=== PATIENT | female | born 2000 | race Caucasian/White ===

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

== ENCOUNTER 2024-09-26 22:25 | Inpatient (IN) | payer MEDICAID, OTHER ==
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
[2024-09-27] MEDS ORDERED: MAG HYDROX/AL HYDROX/SIMETH 355 ML BOTTLE PO PRN (02:28)
[2024-09-27] MEDS ORDERED: IBUPROFEN 600 MG TAB PO PRN (02:28)
[2024-09-27] MEDS ORDERED: haloperidoL 5 MG TAB PO PRN (02:28)
[2024-09-27] MEDS ORDERED: LORazepam 2 MG/ML INJ IM PRN (02:28)
[2024-09-27] MEDS ORDERED: ACETAMINOPHEN TAB 325 MG TAB PO PRN (02:28)
[2024-09-27] MEDS ORDERED: HALOPERIDOL LACTATE 5 MG/ML 1 ML VIAL IM PRN (02:28)
[2024-09-27] MEDS ORDERED: MAGNESIUM HYDROXIDE 2,400 MG/30 ML CUP PO PRN (02:28)
[2024-09-27] MEDS: NICOTINE 14MG/24HR PATCH TRANSDERM SCH (03:13)
[2024-09-27] MEDS: ALPRAZolam 0.5 MG TAB PO STA (03:14)
[2024-09-27] MEDS: LORazepam 1 MG TAB PO PRN (04:41)
[2024-09-27 05:14] LABS: Appearance,Urine Cloudy (Clear); Bacteria,Urine Few /hpf; Bilirubin,Urine Negative (Negative); Blood,Urine Small (Negative); Color,Urine Light Yellow; Glucose,Urine (UA) Negative (Negative); Ketones,Urine 3+ (Negative); Leukocyte Esterase,Urine Small (Negative); Mucus,Urine Few /hpf; Nitrite,Urine Negative (Negative); PH, Urine 6.5 (5.0-8.0); Protein,Urine Negative (Negative); RBC,Urine 3 /hpf (0-5); Specific Gravity,Urine 1.015 (1.001-1.035); Squamous Epithelial Cell,Urine 8 /hpf (0-4); WBC,Urine 5 /hpf (0-5)
[2024-09-27 05:44] LABS: Amphetamine Screen,Urine Detected (NotDetected); Barbiturate Screen,Urine Not Detected (NotDetected); Benzodiazepines Screen,Urine Detected (NotDetected); Cocaine Screen,Urine Not Detected (NotDetected); Methadone Screen, Urine Not Detected (NotDetected); Opiate Screen,Urine Not Detected (NotDetected); Oxycodone Screen, Urine Not Detected (NotDetected); Phencyclidine Screen,Urine Not Detected (NotDetected); Tricyclic Antidepressant,Urine Not Detected (NotDetected); Urn Cannabinoid Scrn Detected (NotDetected)
[2024-09-27 12:27] LABS: Basophils # (A) 0.03 10*3/uL (0.00-0.10); Basophils % (A) 0.5 %; Eosinophils # (A) 0.03 10*3/uL (0.04-0.35); Eosinophils % (A) 0.5 %; HCT 38.4 % (37.2-46.3); HGB 13.5 g/dL (12.0-15.0); Lymphocytes # (A) 0.95 10*3/uL (0.90-5.00); Lymphocytes % (A) 16.6 %; MCH 31.5 pg (27.0-32.0); MCHC 35.2 g/dL (32.0-37.0); MCV 89.5 fL (80.0-97.0); Mean Platelet Volume 9.9 fL (9.5-12.2); Monocytes # (A) 0.52 10*3/uL (0.20-1.00); Monocytes % (A) 9.1 %; Neutrophils # (A) 4.17 10*3/uL (1.80-7.70); Neutrophils % (A) 73.1 %; Platelet Count 276 10*3/uL (140-440); RBC 4.29 10*6/uL (4.10-5.20); RDW 13.3 % (11.5-14.5); WBC 5.71 10*3/uL (4.50-10.00)
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
[2024-09-27 12:40] LABS: ALT 14 U/L (4-34); AST 33 U/L (14-36); African American GFR (CKD) >90 (>60 ml/min/1.73 sqM); Albumin 4.7 g/dL (3.5-5.0); Alkaline Phosphatase 47 U/L (38-126); Anion Gap 11 mmol/L; Bilirubin, Delta 0.1 mg/dL (0.0-0.2); Blood Urea Nitrogen 12 mg/dL (7-17); Calcium 10.1 mg/dL (8.4-10.2); Carbon Dioxide 28 mmol/L (22-30); Chloride 97 mmol/L (98-107); Glucose 102 mg/dL (74-99); Non-African American GFR(CKD) >90 (>60 ml/min/1.73 sqM); Potassium 3.4 mmol/L (3.5-5.1); Sodium 136 mmol/L (137-145); Total Bilirubin 1.1 mg/dL (0.2-1.3); Total Protein 7.8 g/dL (6.3-8.2)
--- NOTE | 2024-09-27 13:04 | P.CONS ---
History of Present Illness - History of Present Illness 24-year-old with bipolar disorder came in for psychiatric evaluation apparently patient had some suicidal statements because of which patient was admitted to psychiatric floor psychiatrist evaluated the patient patient is feeling better today does use nicotine vapes. Patient is not having fever chills nausea vomiting abdominal pain dysuria. Patient potassium is low which was replaced patient does not have any diarrhea at this time. REVIEW OF SYSTEMS: All other systems are negative except those mentioned in the HPI PHYSICAL EXAMINATION: GENERAL: The patient is alert and oriented x3, not in any acute distress. Well developed, well nourished. HEENT: Pupils are round and equally reacting to light. EOMI. No scleral icterus. No conjunctival pallor. Normocephalic, atraumatic. No pharyngeal erythema. No thyromegaly. CARDIOVASCULAR: S1 and S2 present. No murmurs, rubs, or gallops. PULMONARY: Chest is clear to auscultation, no wheezing or crackles. ABDOMEN: Soft, nontender, nondistended, normoactive bowel sounds. No palpable organomegaly. MUSCULOSKELETAL: No joint swelling or deformity. EXTREMITIES: No cyanosis, clubbing, or pedal edema. NEUROLOGICAL: Gross neurological examination did not reveal any focal deficits. SKIN: No rashes. Assessment and plan -Bipolar disorder management as per primary service - Nicotine dependence patient is requiring higher dose of nicotine patch 21 mcg of nicotine patch was ordered history of ADHD for which patient is on amphetamines and urine drug screen is positive for amphetamines and marijuana - Nicotine use and marijuana use: Counseling was provided Past Medical History Past Medical History: No Reported History Additional Past Medical History / Comment(s): Pt states Prior Gall Bladder Removal Surgery-2023 History of Any Multi-Drug Resistant Organisms: None Reported Past Surgical History: Section, Cholecystectomy Past Anesthesia/Blood Transfusion Reactions: No Reported Reaction Smoking Status: Vaper Medications and Allergies Allergies Allergy/AdvReac Type Severity Reaction Status Date / Time No Known Allergies Allergy Verified 09/26/24 23:03 Physical Exam Vitals: Vital Signs Temp Pulse Pulse Resp BP BP Pulse Ox 09/27/24 02:27 97.8 F 77 16 114/72 09/26/24 22:42 97.9 F 91 20 135/74 98 Intake and Output 09/26/24 09/27/24 09/27/24 22:59 06:59 14:59 Other: Weight 53.524 kg 49.9 kg 49.9 kg Results CBC & Chem 7: 09/27/24 11:39 09/27/24 11:39 Labs: Abnormal Lab Results - Last 24 Hours (Table) 09/27/24 09/27/24 09/27/24 Range/Units 04:50 04:50 11:39 Eosinophils # 0.03 L (0.04-0.35) 10*3/uL Sodium (137-145) mmol/L Potassium (3.5-5.1) mmol/L Chloride (98-107) mmol/L Glucose (74-99) mg/dL Urine Appearance Cloudy H (Clear) Urine Ketones 3+ H (Negative) Urine Blood Small H (Negative) Ur Leukocyte Esterase Small H (Negative) Ur Squamous Epith Cells 8 H (0-4) /hpf Urine Bacteria Few H (None) /hpf Urine Mucus Few H (None) /hpf Ur Amphetamines Screen Detected H (NotDetected) U Benzodiazepines Scrn Detected H (NotDetected) U Marijuana (THC) Screen Detected H (NotDetected) 09/27/24 Range/Units 11:39 Eosinophils # (0.04-0.35) 10*3/uL Sodium 136 L (137-145) mmol/L Potassium 3.4 L (3.5-5.1) mmol/L Chloride 97 L (98-107) mmol/L Glucose 102 H (74-99) mg/dL Urine Appearance (Clear) Urine Ketones (Negative) Urine Blood (Negative) Ur Leukocyte Esterase (Negative) Ur Squamous Epith Cells (0-4) /hpf Urine Bacteria (None) /hpf Urine Mucus (None) /hpf Ur Amphetamines Screen (NotDetected) U Benzodiazepines Scrn (NotDetected) U Marijuana (THC) Screen (NotDetected)
[2024-09-27] MEDS: NICOTINE 21MG/24HR PATCH TRANSDERM SCH (14:11)
[2024-09-27] MEDS: POTASSIUM CHLORIDE ER 20 MEQ TAB.ER PO STA (14:22)
[2024-09-27] MEDS: ARIPiprazole 5 MG TAB PO SCH (20:41)
[2024-09-27] MEDS: CAPLYTA 42 MG PO SCH (20:42)
[2024-09-28 08:01] LABS: Chol/HDL Ratio 2.13 Ratio; LDL Cholesterol,Calculated 59.8 mg/dL (0.0-131.0)
[2024-09-28] MEDS: LITHIUM CARBONATE 150 MG CAP PO SCH (11:03)
--- NOTE | 2024-09-28 13:05 | P.PN ---
Progress Note - Text Progress Note Date: 09/28/24 Interval history: Patient was seen in bed and was directable and agreeable to speak with telegraphic typewriter mechanic. Patient appeared more bright in affect, less sedated. She states yesterday she was "out of it" and did not recall speaking to me and wants to be converted to AFV as she is willing to accept help and treatment. She does find her Caplyta somewhat helpful however still struggles with mood swings and hypomanic symptoms at time. She states today being difficult due to her being here on Mother's D ay. At this time patient denies any suicidal or homicidal ideations intent or plan. Denies any auditory or visual hallucinations. Patient denies any side effects from the medications and has been compliant with meds. Mental status exam: General Appearance: Patient appears to be stated age is alert, directable, and cooperative. Behavior: No agitated behavior. Patient is calm and directable Speech: Patient's speech is fluent and nonpressured. Mood/Affect: Mood is improving mildly, affect is congruent and constricted. Suicidality/Homicidality: Patient denies having any suicidal or homicidal ideation intent or plan. Perceptions: Patient denies any auditory or visual hallucinations. Though content/process: There is no evidence of any delusional thought content and thought process is linear and goal-directed. Memory and concentration: AOX3, grossly intact for the purposes of this session Judgment and insight: improving mildly Assessment/Plan: Continue with current diagnosis. Patient continues to meet criteria for inpatient psychiatric admission for symptom stabilization and safety. Patient will be maintained on current psychotropic medication regimen other than the following: Discontinue Abilify and start lithium 150 mg twice daily for mood stabilization, continue Caplyta 42 mg at bedtime for bipolar disorder. Monitor for medication compliance and for any psychotropic medication side effects. Will continue to monitor ongoing response to treatment. Encouraged participation in milieu.
--- NOTE | 2024-09-29 18:58 | P.PN ---
Progress Note - Text Progress Note Date: 09/29/24 Interval history: Patient was seen awake but resting in bed. She was directable and agreeable to speak with assembly instructions writer. She reports sleeping and eating well. At this time patient denies any suicidal or homicidal ideation, intent or plan. Denies any auditory or visual hallucinations. Patient has been compliant with meds and denies medication side effects except for feeling a bit sleepier, but otherwise does not appear over-sedated. Mental status exam: General Appearance: Patient appears to be stated age is alert, directable, and cooperative. Behavior: No agitated behavior. Patient is calm and directable Speech: Patient's speech is fluent and nonpressured. Mood/Affect: Mood is improving mildly, affect is congruent and constricted. Suicidality/Homicidality: Patient denies having any suicidal or homicidal ideation intent or plan. Perceptions: Patient denies any auditory or visual hallucinations. Though content/process: There is no evidence of any delusional thought content and thought process is linear and goal-directed. Memory and concentration: AOX3, grossly intact for the purposes of this session Judgment and insight: improving mildly Assessment/Plan: Continue with current diagnosis. Patient continues to meet criteria for inpatient psychiatric admission for symptom stabilization and safety. Patient will be maintained on current psychotropic medication. Monitor for medication compliance and for any psychotropic medication side effects. Will continue to monitor ongoing response to treatment. Encouraged participation in milieu.
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
[2024-09-30] MEDS: LITHIUM CARBONATE ER 450 MG TABLET.ER PO SCH (12:19)
--- NOTE | 2024-10-01 11:18 | P.PN ---
Progress Note - Text Progress Note Date: 10/01/24 Interval History: Patient was seen today for psychiatric follow up. Patient was seen in the [facility] participating group. Claims that she is doing a bit better with regards to her mood and anxiety. Claims that she does like the new medication lithium, states that she would be okay with having it at nighttime instead of during the day. Claims that she did have a difficult time sleeping last night was okay to try trazodone tonight. States that she was hoping for probable discharge tomorrow will be going back to her mother's house. States that she is eating well. Did claim that she has dryness and cracking in her fingers and is worried about it being infected. Claims that her appetite is fair. She is denying any side effects at this time. Denies any suicidal homicidal ideations intent or plan denies any auditory or visual hallucinations. MENTAL STATUS EXAM: General Appearance: Patient appears to be in, sitting in chair, stated age is alert, directable, and attempts to cooperate. Patient appears to have improving hygiene and grooming. Behavior: Patient is laying without any agitated behavior. Attempting to cooperate today. Improving mildly Speech: Patient's speech is fluent and nonpressured. Mood/Affect: Patient reports their mood is "better" improving, affect is congr uent and Improving mildly Suicidality/Homicidality: Patient denies having any homicidal ideation intent or plan. Denies any suicidal ideations intent or plan Perceptions: Patient denies any visual hallucinations and denies any auditory hallucinations Though content/process: There is no evidence of any delusional thought content and thought process is linear and goal-directed. Memory and concentration: AOX3, grossly intact for the purposes of this session Judgment and insight: improving mildly IMPRESSIONS: Bipolar 1 disorder, current episode mixed History of PTSD Nicotine dependence history of ADHD PLAN: -Patient is admitted under voluntary status to MHU for stabilization of psychiatric symptoms and safety. Patient has signed adult voluntary form and and is placed in patient's chart. -Medications : Change Lithobid 450 mg hs for mood stabilization. Will check a lithium level tomorrow morning. Continue with Caplyta 1 tablet at nighttime for bipolar disorder/mood stabilization. Added trazodone 50 mg nightly for insomnia/mood. - Ativan and Haldol PRN for agitation/aggression -NRT -nicotine patch -SW on board for discharge planning. Encourage patient to participate in groups to work on coping skills. trailhead maintenance worker will ensure that home environment is safe on discharge including guns weapons locked up or removed from the environment. Likely discharge tomorrow if patient continues to improve
[2024-10-01] MEDS: NEOMYCIN-BACITRACIN-POLY OINT 14 GM TUBE TOPICAL SCH (12:21)
[2024-10-01] MEDS: NICOTINE GUM (POLACRILEX) 2 MG GUM BUCCAL PRN (15:12)
[2024-10-01] MEDS: LITHIUM CARBONATE ER 450 MG TABLET.ER PO SCH (20:16)
[2024-10-01] MEDS: traZODone HCL 50 MG TAB PO SCH (20:17)
[2024-10-02 10:09] VITALS: BP 106/70; PULSE 94; RESP 16; TEMP 98.4
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
[2024-10-02 11:15] VITALS: BMI 19.8
[2024-10-02] MEDS: LITHIUM CARBONATE 300 MG CAP PO SCH (12:23)
== END 2024-10-02 12:50 | disposition home or self-care (01) | DRG 753 ==
LOC: EC 22:25 → 3MHU 09-27 02:26
PROVIDERS: ADMIT Psychiatry & Neurology Psychiatry; ATTEND Psychiatry & Neurology Psychiatry
DX: F31.60 Bipolar disorder, current episode mixed, unspecified (principal); F41.9 Anxiety disorder, unspecified; F43.10 Post-traumatic stress disorder, unspecified; G47.00 Insomnia, unspecified; F17.200 Nicotine dependence, unspecified, uncomplicated; F22 Delusional disorders; R45.851 Suicidal ideations; Z79.899 Other long term (current) drug therapy; F90.9 Attention-deficit hyperactivity disorder, unspecified type; Z56.0 Unemployment, unspecified; Z71.89 Other specified counseling; Z11.52 Encounter for screening for COVID-19; Z28.310 Unvaccinated for COVID-19; Z28.21 Immunization not carried out because of patient refusal
CPT/HCPCS: 80053; 80061; 80178; 80306; 81001; 81025; 82075; 82248; 83036; 84443; 85025; 87635; 99285